=== PATIENT | male | born 1955 | race Caucasian/White ===

== ENCOUNTER 2017-03-16 22:27 | Emergency (ER) | payer BC ==
[2017-03-16] MEDS: Sodium Chloride 0.9% 1,000 ML PRIMARY IV ONE (22:40)
[2017-03-16] MEDS ORDERED: NORMAL SALINE 10 ML SYRINGE FLUSH IVP PRN (22:48)
[2017-03-16 22:56] LABS: BASOPHILS # (AUTO) 0.03 10*3/UL; BASOPHILS % (AUTO) 0.2 % (0-1); EOSINOPHILS # (AUTO) 0.05 10*3/UL; EOSINOPHILS % (AUTO) 0.3 % (0-8); HEMATOCRIT 34.6 % (42.0-52.0); HEMOGLOBIN 11.6 g/dL (14.0-18.0); LYMPHOCYTES # (AUTO) 1.06 10*3/uL; MEAN CORPUSCULAR HEMOGLOBIN 30.7 PG (27-31); MEAN CORPUSCULAR HGB CONC 33.5 g/dL (33-37); MEAN CORPUSCULAR VOLUME 91.5 FL (80-90); MEAN PLATELET VOLUME 9.2 FL (7.4-12.2); MONOCYTES # (AUTO) 1.76 10*3/UL (0.3-0.8); MONOCYTES % (AUTO) 9.2 % (5-15); NEUTROPHILS # (AUTO) 16.17 10*3/UL; NEUTROPHILS % (AUTO) 84.2 % (50-80); PLATELET MORPHOLOGY COMMENT NORMAL MORPHOLOGY (NORM); RBC MORPHOLOGY COMMENT NORMAL MORPHOLOGY (NORM); RED BLOOD COUNT 3.78 10^6/uL (4.70-6.10); WBC MORPHOLOGY COMMENT NORMAL MORPHOLOGY (NORM)
[2017-03-16 23:03] LABS: BLOOD UREA NITROGEN 22 mg/dL (7-22); CALCIUM 8.5 mg/dL (8.7-10.7); EST GLOMERULAR FILTRATION > 60 (>60 ml/min/1.73m(2)); SERUM ALBUMIN 4.3 g/dL (3.5-4.8)
--- NOTE | 2017-03-16 23:55 | EKG ---
[address] [address] Measurements Intervals [place] Rate: 106 P: 47 NM: 127 QRS: 34 QRSD: 90 T: 11 QT: 329 QTc: 391 Interpretive Statements SINUS TACHYCARDIA POSSIBLE (BORDERLINE) INFERIOR MYOCARDIAL INFARCTION [30 ms Q WAVE IN II/aVF], PROBABLY OLD ABNORMAL RHYTHM ECG INTERPRETATION BASED ON A DEFAULT AGE OF 40 YEARS No previous ECG available for comparison Electronically Signed On 03-19-17 10:11:13 MDT by Derick Mcginnis MD [email or web address]
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
[2017-03-17] MEDS ORDERED: MORPHINE SULFATE 4 MG/1 ML IVP ONE (00:14)
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
[2017-03-17] MEDS ORDERED: MIDAZOLAM 5 MG/1 ML ONE (00:58)
[2017-03-17] MEDS: Sodium Chloride 0.9% 1,000 ML PRIMARY IV ONE (01:10)
[2017-03-17] MEDS ORDERED: MORPHINE SULFATE 10 MG/1 ML ONE (01:11)
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
--- NOTE | 2017-03-17 02:30 | DI ---
HISTORY: Chest tube placement. COMPARISON: 03/17/2017. TECHNIQUE: Frontal view of the chest was obtained. FINDINGS: The patient is status post placement of the right-sided chest tube. No gross pneumothorax is seen. There is a large amount of right chest wall emphysema. The cardiomediastinal silhouette is enlarged when compared to the prior examination. Low lung volume s accentuates this finding. IMPRESSION: 1. Status post placement of a right-sided chest tube. There is a large amount of right chest wall em physema.
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
[2017-03-17 03:08] LABS: BILIRUBIN,URINE NEGATIVE (NEG); CLARITY,URINE CLEAR (CLEAR); COLOR,URINE YELLOW; GLUCOSE, URINE (UA) NEGATIVE (NEG); NITRATE,URINE NEGATIVE (NEG); OCCULT BLOOD,URINE MODERATE (NEG); PROTEIN,URINE NEGATIVE (NEG); UROBILINOGEN,URINE 0.2 EU/dL (0.2)
[2017-03-17 03:12] LABS: URINE SAMPLE TYPE CATH SPECIMEN
[2017-03-17 03:12] LABS: URINE SAMPLE TYPE CATH SPECIMEN; WBC,URINE 0
[2017-03-17 03:16] LABS: AMPHETAMINE SCREEN NEGATIVE (NEG); CANNABINOID SCREEN,URINE NEGATIVE (NEG); COCAINE SCREEN NEGATIVE (NEG); METHADONE URINE SCREEN NEGATIVE (NEG); METHAMPHETAMINES SCREEN,URINE NEGATIVE (NEG); OPIATE SCREEN,URINE POSITIVE (NEG)
[2017-03-17 03:41] VITALS: RESP 24; TEMP 99.8
[2017-03-17] MEDS ORDERED: LIDOCAINE 2% 20 MG/ML - 20 ML VIAL ONE (06:28)
== END 2017-03-17 03:26 | disposition home or self-care (01) ==
LOC: ER 22:27
DX: R07.89 Other chest pain (principal); S22.048A Other fracture of fourth thoracic vertebra, initial encounter for closed fracture; S00.03XA Contusion of scalp, initial encounter; S00.83XA Contusion of other part of head, initial encounter; S01.312A Laceration without foreign body of left ear, initial encounter; S22.41XA Multiple fractures of ribs, right side, initial encounter for closed fracture; R10.32 Left lower quadrant pain; R10.31 Right lower quadrant pain; S27.0XXA Traumatic pneumothorax, initial encounter; M50.31 Other cervical disc degeneration, high cervical region; V86.69XA Passenger of other special all-terrain or other off-road motor vehicle injured in nontraffic accident, initial encounter
CPT/HCPCS: 32551 ×2; 70450; 70486; 71010; 71260; 72125; 74177; 80053; 80305; 80320; 81001; 81003; 82150; 83605; 83690; 84484; 85025; 85610; 93005; 93010; 96361; 96374; 99291 ×2; 99292; J2270; J2704; J2001; J2250; J7030